=== PATIENT | female | born 1985 | race African-American/Black ===

== ENCOUNTER 2020-06-30 16:05 | Emergency (ER) | payer SELFPAY ==
[~2020-06-30] VITALS: Ht 165.1 cm; Wt 81.0 kg
[2020-06-30 16:06] VITALS: BP 116/78
[2020-06-30] MEDS ORDERED: ACETAMINOPHEN 325MG TABLET PO ONE (16:45)
[2020-06-30] MEDS ORDERED: PNV11TAB MT (19:09)
== END 2020-06-30 18:10 | disposition short-term general hospital (02) ==
LOC: ER 16:05
DX: M54.5 Low back pain (principal); V43.52XA Car driver injured in collision with other type car in traffic accident, initial encounter; Y93.9 Activity, unspecified; Y92.410 Unspecified street and highway as the place of occurrence of the external cause; Z88.0 Allergy status to penicillin
CPT/HCPCS: 72148; 99285

== ENCOUNTER 2020-06-30 19:07 | Observation (INO) | payer MEDICARE ==
[~2020-06-30] VITALS: Ht 162.6 cm; Wt 80.7 kg
[2020-06-30] MEDS ORDERED: PNV11TAB MT (19:09)
== END 2020-06-30 22:50 | disposition home or self-care (01) ==
LOC: 8 EST LDRP 19:07
PROVIDERS: ADMIT Specialist; ATTEND Specialist
DX: O9A.213 Injury, poisoning and certain other consequences of external causes complicating pregnancy, third trimester (principal); V43.92XA Unspecified car occupant injured in collision with other type car in traffic accident, initial encounter; Y93.89 Activity, other specified; Y92.89 Other specified places as the place of occurrence of the external cause
CPT/HCPCS: 59025; 76805; 76818; G0378; 99281